=== PATIENT | female | born 1960 | race Caucasian/White ===

== ENCOUNTER → 2017-05-08 | Outpatient (CLI) | payer OTHER ==
[~2017-05-08] MED LIST: CRAN200C2 PO; FLUO20CA16 PO; HYDR-2766 PO; HYDR1TAB12 PO; IBUP1TAB84 PO; METH-38 PO; MULT1TAB52 PO; OMEP40CA5 PO; SIMV40TA3 PO; TRAZ50TA15 PO
[2017-05-08 15:57] LABS: BASO # 0.1 x10^3/uL (0.0-0.2); BASO % 1 % (0-3); EOS % 0 % (0-3); HEMATOCRIT 43.4 % (36.0-47.0); HEMOGLOBIN 14.5 g/dL (12.0-15.5); LYMPH # 2.5 x10^3/uL (1.0-4.8); LYMPH % 45 % (24-48); MEAN CORPUSCULAR HEMOGLOBIN 34 pg (25-35); MEAN CORPUSCULAR HGB CONC 33 g/dL (31-37); MEAN CORPUSCULAR VOLUME 101 fL (79-100); MONO % 9 % (0-9); NEUT % 44 % (31-73); PLATELET COUNT 218 x10^3/uL (140-400); RED BLOOD COUNT 4.31 x10^6/uL (3.50-5.40); RED CELL DISTRIBUTION WIDTH 13.4 % (11.5-14.5); WHITE BLOOD COUNT 5.4 x10^3/uL (4.0-11.0)
[2017-05-08 16:15] LABS: ALBUMIN 4.1 g/dL (3.4-5.0); ALBUMIN/GLOBULIN RATIO 1.1 (1.0-1.7); CALCIUM 8.9 mg/dL (8.5-10.1); CREATININE 0.8 mg/dL (0.6-1.0); GFR 73.9; POTASSIUM 4.3 mmol/L (3.5-5.1); TOTAL BILIRUBIN 0.6 mg/dL (0.2-1.0); TOTAL PROTEIN 7.8 g/dL (6.4-8.2)
== END | disposition home or self-care (01) ==
LOC: SURGPAT 13:25
PROVIDERS: ATTEND Neurological Surgery
DX: M48.06 Spinal stenosis, lumbar region (principal)
CPT/HCPCS: 36415; 80053; 85027; 87641

== ENCOUNTER 2017-05-15 06:59 | Observation (INO) | payer OTHER ==
[2017-05-15] VITALS (10 sets, daily range): BP systolic 98–110; BP diastolic 57–68
[~2017-05-15] VITALS: Ht 165.1 cm; Wt 86.2 kg
[~2017-05-15 06:59] MED LIST changes: +BACITRACIN 50,000 UNIT in IV NORMAL SALINE 1000ML BAG 1,000 ML IRR ONE; -HYDR-2766 PO; -METH-38 PO
[2017-05-15] MEDS ORDERED: MORPHINE SULFATE 2 MG/ML DISP.SYRIN. IV PRN (07:00)
[2017-05-15] MEDS ORDERED: PROCHLORPERAZINE 10 MG/2 ML VIAL. IV PRN (07:00)
[2017-05-15] MEDS ORDERED: IV RINGERS,LACTATED 1000ML 1,000 ML IV SCH (07:00)
[2017-05-15] MEDS ORDERED: ONDANSETRON PF 4 MG/2 ML VIAL. IV PRN (07:00)
[2017-05-15] MEDS ORDERED: fentaNYL PF VIAL 100 MCG/2 ML VIAL IV PRN (07:00)
[2017-05-15] MEDS ORDERED: LIDOCAINE 1% 1 ML SYRINGE. ID PRN (07:00)
[2017-05-15] MEDS ORDERED: KETOROLAC 60 MG/2 ML INJ FOR OR. ONE (07:46)
[2017-05-15] MEDS ORDERED: GELATIN SPONGE SIZE 100. ONE (07:46)
[2017-05-15] MEDS ORDERED: THROMBIN TOPICAL 20,000 UNIT SPRAY.SYRN KIT TP ONE (07:46)
[2017-05-15] MEDS ORDERED: BUPIVACAINE-EPI 0.25%-1:200000 MPF 30 ML VIAL. ONE (07:46)
[2017-05-15] MEDS ORDERED: DESFLURANE > 120 MINUTES IH ONE (07:58)
[2017-05-15] MEDS ORDERED: GLYCOPYRROLATE 1 MG/5 ML VIAL. ONE (07:58)
[2017-05-15] MEDS ORDERED: fentaNYL PF VIAL 100 MCG/2 ML VIAL ONE (07:58)
[2017-05-15] MEDS ORDERED: REMIFENTANIL 2 MG VIAL. IV ONE (07:58)
[2017-05-15] MEDS ORDERED: MIDAZOLAM HCL/PF 2 MG/2 ML VIAL. ONE (07:58)
[2017-05-15] MEDS ORDERED: MINERAL OIL/PETROLATUM,WHITE OPHTH OINT 3.5GM TUBE. ONE (07:59)
[2017-05-15] MEDS ORDERED: ROCURONIUM 50 MG/5 ML VIAL. ONE (07:59)
[2017-05-15] MEDS ORDERED: ONDANSETRON PF 4 MG/2 ML VIAL. ONE (07:59)
[2017-05-15] MEDS ORDERED: PROPOFOL 20 ML IV ONE (07:59)
[2017-05-15] MEDS ORDERED: PROPOFOL 50 ML IV ONE ×2 (07:59)
[2017-05-15] MEDS ORDERED: 0.9 % SODIUM CHLORIDE 50 ML VIAL. IJ ONE (07:59)
[2017-05-15] MEDS ORDERED: DEXAMETHASONE SOD PHOS 20 MG/5 ML VIAL. ONE (07:59)
[2017-05-15] MEDS ORDERED: NEOSTIGMINE METHYLSULFATE 5 MG/5 ML SYRINGE. ONE (07:59)
[2017-05-15] MEDS ORDERED: LIDOCAINE 2% PF Vial for OR 5 ML VIAL. ONE (07:59)
[2017-05-15] MEDS ORDERED: PHENYLEPHRINE 10 MG/ML VIAL. ONE (08:02)
[2017-05-15] MEDS: fentaNYL PF VIAL 100 MCG/2 ML VIAL IV PRN ×8 (10:39→23:37)
[2017-05-15] MEDS ORDERED: PROMETHAZINE 12.5 MG in IV NORMAL SALINE 50ML 50 ML IV PRN (11:00)
[2017-05-15] MEDS ORDERED: MEPERIDINE PF 25 MG/ML VIAL. ONE (11:05)
[2017-05-15] MEDS ORDERED: MEPERIDINE PF 25 MG/ML VIAL. IV PRN (11:15)
[2017-05-15] MEDS ORDERED: MIDAZOLAM HCL/PF 2 MG/2 ML VIAL. IV ONE (11:15)
[2017-05-15] MEDS: HYDROmorphone 2 MG/ML VIAL IV PRN ×4 (11:37→12:31)
[2017-05-15] MEDS ORDERED: MAG HYDROX/ALUMINUM HYD/SIMETH 30 ML ORAL.SUSP PO PRN (11:45)
[2017-05-15] MEDS ORDERED: diphenhydrAMINE HCL 25 MG CAPSULE PO PRN (11:45)
[2017-05-15] MEDS ORDERED: diphenhydrAMINE 50 MG/ML VIAL IV PRN (11:45)
[2017-05-15] MEDS ORDERED: ACETAMINOPHEN 325 MG TABLET. PO PRN (11:45)
[2017-05-15] MEDS ORDERED: CALCIUM CARBONATE 500 MG TAB.CHEW PO PRN (11:45)
[2017-05-15] MEDS ORDERED: MAGNESIUM HYDROXIDE 2,400 MG/30 ML ORAL.SUSP. PO PRN (11:45)
[2017-05-15] MEDS ORDERED: 0.9 % SODIUM CHLORIDE 10 ML DISP.SYRIN. IV PRN (11:45)
[2017-05-15] MEDS ORDERED: HYDROcodone/APAP 7.5/325MG 1 TAB TABLET PO PRN ×2 (11:45)
[2017-05-15] MEDS: FLUoxetine HCL 20 MG CAPSULE PO SCH (14:38)
[2017-05-15] MEDS: MULTIVITAMIN with MINERAL TABLET. PO SCH (14:38)
[2017-05-15] MEDS: PANTOPRAZOLE 40 MG TABLET.DR. PO SCH (14:39)
[2017-05-15] MEDS: METHOCARBAMOL 750 MG TABLET PO PRN ×2 (14:39→23:37)
[2017-05-15] MEDS ORDERED: POTASSIUM CL 20MEQ D5-0.45NACL 1,000 ML IV SCH (15:00)
[2017-05-15] MEDS ORDERED: HYDROcodone/APAP 10/325 1 TAB TABLET PO PRN (18:30)
[2017-05-15] MEDS: DOCUSATE SODIUM 100 MG CAPSULE. PO SCH (20:49)
[2017-05-15] MEDS: HYDROcodone/APAP 10/325 1 TAB TABLET PO PRN (20:49)
[2017-05-15] MEDS ORDERED: SIMVASTATIN 40 MG TABLET. PO SCH (21:00)
[2017-05-15] MEDS ORDERED: traZODone 50 MG TABLET. PO SCH (21:00)
[2017-05-16 02:45] VITALS: BP 112/70
[2017-05-16] MEDS: HYDROcodone/APAP 10/325 1 TAB TABLET PO PRN ×2 (03:21→10:11)
[2017-05-16] MEDS: fentaNYL PF VIAL 100 MCG/2 ML VIAL IV PRN ×3 (04:40→09:32)
[2017-05-16 06:30] VITALS: BP 97/66
[2017-05-16] MEDS: PANTOPRAZOLE 40 MG TABLET.DR. PO SCH (07:10)
[2017-05-16] MEDS ORDERED: NON FORMULARY ITEM (Cranberry Extract (Cranberry) 200 MG) PO SCH (09:00)
[2017-05-16] MEDS: DOCUSATE SODIUM 100 MG CAPSULE. PO SCH (09:33)
[2017-05-16] MEDS: MULTIVITAMIN with MINERAL TABLET. PO SCH (09:33)
[2017-05-16] MEDS: FLUoxetine HCL 20 MG CAPSULE PO SCH (09:33)
--- NOTE | 2017-05-16 09:53 | DISCH ---
DISCHARGE INSTRUCTIONS Condition on Discharge Condition on Discharge: Stable Activity After Discharge Activity Instructions for Disc: Activity as tolerated, Avoid exertion Other activity instructions: no driving for a week Bathing Instructions: Shower-keep dressing dry Lifting Instructions after Dis: No heavy lifting, No pulling or pushing, Do not lift >10 pounds Diet after Discharge Additional Diet Restrictions: resume home diet Wound Incision Care Wound/Incision Care: Ice to area for comfort Other wound/incision instructi: may remove dressing in 48 hrs if dry then may shower- no soaking Contacting the after DC Call your doctor for: Concerns you may have Follow-Up Follow up with: Dr. Michelle's nurse in 2 weeks -[phone] SHONNA MICHELLE MD May 16, 2017 09:53
[2017-05-16] MEDS ORDERED: HYDR-2766 PO (09:58)
[2017-05-16] MEDS ORDERED: METH-38 PO (09:59)
[2017-05-16 10:01] VITALS: BP 141/79
[2017-05-16] MEDS: METHOCARBAMOL 750 MG TABLET PO PRN (10:10)
--- NOTE | 2017-05-17 12:38 | PATHOLOGY ---
PATHOLOGY REPORT * * * * * * * * FINAL DIAGNOSIS: Fibroadipose muscular soft tissue bone and cartilage, "lumbar decompression": - Fragments of fibromuscular adipose tissue with bone and cartilage with focal fibrosis consistent with lumbar stenosis. (SHA:quirino; 05/17/2017) REPORT ELECTRONICALLY SIGNED BY: Oli Zaidi M.D. DATE/TIME: 05/17/2017 12:38 * * * * * * * * GROSS PATHOLOGY: Received in formalin labeled "Francia Barbosa, lumbar decompression" are multiple segments of kelly, rubbery, and gritty tissue admixed with bone. The specimen measures 3.8 x 3.7 x 1.1 cm in aggregate dimensions. The tissue is submitted representatively in cassette A1, following decalcification. (CAA; 05/16/2017) INITIAL CPT CODE(S): A; 80884, 95067 Professional services [place] [address] Technical services performed by [facility] at [address] [place] [address], [facility] [address] [address]. SPECIMEN(S) RECEIVED: A.Lumbar decompression CLINICAL HISTORY: Lumbar stenosis, radiculopathy PATIENT: FRANCIA BARBOSA /AGE: 212/24/1960 (Age: 56) PATIENT #: [id number] ALT CASE #: SPECIMEN COLLECTION DATE: 05/15/2017 SPECIMEN RECEIVED DATE: 05/15/2017 [facility] - [address] [place] [address] - PHONE: [phone] * * * END OF REPORT * * *
--- NOTE | 2017-06-01 03:52 | OP ---
DATE OF SURGERY: 05/15/2017 PREOPERATIVE DIAGNOSES: Lateral recess stenosis L4-L5 left with severe lumbar radiculopathy. POSTOPERATIVE DIAGNOSIS: Lateral recess stenosis L4-L5 left with severe lumbar radiculopathy. OPERATION PERFORMED: Hemilaminotomy with removal of thickened ligamentum flavum and performance of a partial foraminotomy to decompress the left L5 root. The operation was done with EMG monitoring, fluoroscopy, and microscopic dissection. ROLL GRINDER: Nikita Bernabe MD, assisted with the surgery, assisted with the decompression and closure. OPERATIVE INDICATIONS: The patient is a very pleasant 56-year-old who developed intractable back and left leg pain which was extremely severe. On imaging studies, she had lateral recess stenosis at L4-L5. I recommended micro-decompressive surgery to decompress this region and see if this would help her with her severe pain. She understood the surgery and the risks, she understood the technique of the operation and she wished to go ahead. DESCRIPTION OF PROCEDURE: Following endotracheal anesthesia, the patient was positioned prone on the Jarod table. Her lumbar region was prepped and draped in standard fashion. TIARA hose and AV impulse boots were applied for DVT prophylaxis. A microscope was draped. Fluoroscopy was draped and brought into the field. Ancef 2 grams given less than one hour prior to initiation of surgery and fluoroscopic guidance, a midline posterior incision was made over the L4-L5 interspace. I dissected down through the skin and subcutaneous tissue and reflected the paraspinal muscles and placed a Alvin micro disk retractor. I brought in the microscope and using the high speed air drill, I burred down a very generous hemilaminotomy using microscopic technique. Ligamentum flavum was grasped, freed up from above and peeled inferiorly and then from medial to lateral and then I trimmed this away laterally exposing the lateral edge of the dura and I worked inferiorly and thinned the bone over the neural foramen and then trimmed this with the 2.5 mm feeling Kerrison. At this point, I had an excellent decompression of the dura and the exiting root which is not well decompressed especially after the calcified ligamentum flavum and peeled back and removed. I gently retracted the dura and nerve root medially. There were few epidural veins, which I coagulated and then following this, I explored carefully, the disk was firm, no diskectomy was warranted. I had an excellent decompression and I irrigated. I did use small amounts of bone wax and then removed the retractor, obtained hemostasis in the muscle and closed the wound in layers with absorbable sutures, the skin was closed with 4-0 subcuticular stitch. Operation went very well and the patient was taken to recovery room in excellent condition. SHONNA MICHELLE MD DR: MATTHIEU/espinoza JOB#: [id number] / [id number]
== END 2017-05-16 10:25 | disposition home or self-care (01) ==
LOC: SURG 06:59 → EDUNIT# 08:30 → 4 SOUTHEST 11:32 → UNDOADMOB 12:42 → 4 SOUTHEST 13:10
PROVIDERS: ADMIT Neurological Surgery; ATTEND Neurological Surgery
DX: M48.06 Spinal stenosis, lumbar region (principal); M54.16 Radiculopathy, lumbar region
CPT/HCPCS: 63030; 76000; 88304; 88311; 96374; 96376; 97161; A6539; G0378; G0379; G8978; G8979; G8980; J0690; J1100; J1170; J1885; J2001; J2175; J2250; J2405; J2704; J2710; J3010; J3490; J7030; J7120

== ENCOUNTER → 2017-08-14 | Outpatient (CLI) | payer OTHER ==
[~2017-08-14] MED LIST changes: -BACITRACIN 50,000 UNIT in IV NORMAL SALINE 1000ML BAG 1,000 ML IRR ONE; +CALC500T30 PO; +HYDR-2762 PO; +HYDR-2766 PO; +METH-38 PO
--- NOTE | 2017-08-14 12:09 | PAIN ---
DATE OF SERVICE: 08/14/2017 PAIN CLINIC INITIAL CONSULTATION DATE OF SERVICE: 08/14/2017 CHIEF COMPLAINT: Low back and right hip pain. HISTORY OF PRESENT ILLNESS: This is a 56-year-old female who presents with history of pain, low back, right gluteus with recent surgery in May of this year with laminectomy which cured the left-sided pain, but the right-sided pain is now different staying mostly only in her back, which was unlike that prior to surgery. The patient reports it has been this way about 6 months as a constant, sharp, stabbing pain. It is aching, dull, cramping, can be more of a tingling sensation in the back itself, but unlike the presurgical pain which was radiating to her legs. This is staying in her right low back. The patient reports it is worse with standing, walking, changing positions, better with leaning forward, worse with extension of the spine, worse with rotation, especially to the right side, it is much more exacerbated. The patient reports it wakes her up from sleep at night at least twice a night, does not affect her bowel or bladder control, but does affect her ability to walk. She is favoring her right side of her low back. The patient reports she has had physical therapy, which was not helpful. This was in April of this year, which has not decreased the pain. The patient has been taking Robaxin muscle relaxer as well as Medina, which does decrease the pain, but only for about 3-4 hours at a time. The patient reports disability rate from 0-10, 10 being the worst, as an 8 with family and home responsibilities, recreation, social activity, occupation, sexual behavior, 7 with self care and driving, and 2 with life support activities, again worse with walking, standing, changing positions. Sitting decreases the pain, driving increases the pain; however, with using her right foot and leg, any lifting, bending or stooping increases the pain. The patient did have an MRI scan dated 07/28/2017 showing previous surgical changes at L4-L5 with minimal diffuse disk bulge noted. Degenerative changes in the facets at L4-L5 with lateral recesses partially effaced, and L5-S1 showing normal disk and facet at that level. The patient reports no loss of motor function, but her right back seems to fatigue much more easily when walking compared to the left side. PAST MEDICAL HISTORY: Significant for cigarette smoking, arthritis, glaucoma, cataracts. PREVIOUS SURGERY: Include a cataract extraction, retinal surgery on the right, tube shunt in the left eye, previous total right hip replacement in 2010 and laminectomy on 05/15/2017. CURRENT MEDICATIONS: Include Robaxin, cranberry, trazodone, Prozac, simvastatin, hydrocodone, and calcium. ALLERGIES: The patient has no known drug allergies. FAMILY HISTORY: Significant for no major medical problems or conditions that she is aware of. SOCIAL HISTORY: The patient smokes about 1 pack a day, has for 40 years, of cigarettes. Drinks 1-2 drinks once or twice a month, alcoholic drinks. She is , lives with her spouse and has grandchildren that she takes care of. The patient lives locally in [place], [place], reports she is currently retired. REVIEW OF SYSTEMS: The patient's review of systems is positive for those items mentioned in history of present illness. All systems reviewed and otherwise negative. It is complete, full and well documented on the patient's chart. PHYSICAL EXAMINATION: Today: VITAL SIGNS: The patient's blood pressure 158/95, pulse 80, respirations 18, temperature 98.1 degrees Fahrenheit. Height is 5 feet 5 inches, weight is 171 pounds. GENERAL: The patient is awake, alert, oriented, appropriate, very pleasant demeanor. HEENT: Head shows normocephalic and atraumatic. Extraocular movements are intact, symmetrical. Oral cavity, mucous membranes are moist and pink. Dentition is intact. NECK: Shows anterior throat supple without palpable lymphadenopathy noted. Swallow reflex is symmetrical. CHEST: Shows normal on inspection. Breath sounds clear to auscultation bilaterally. HEART: Shows S1 and S2 clear. ABDOMEN: Soft, nontender, nondistended. No palpable organomegaly, no rebound or guarding demonstrated. BACK: The patient's back shows spine grossly midline. Normal appearing thoracic kyphosis and mild flattening of lumbar lordotic curvature with well-healed surgical scar noted in the lumbar distribution. Lumbar paraspinous muscles are diffusely tender, but firm and equal and symmetrical bilaterally without radiation of pain, no tenderness over the spinous processes, sacrum or sacroiliac regions. The patient shows some significant tenderness in the low lumbar distribution just lateral to the spinous processes in the low paraspinal distribution, very, very tender on the right, but nontender on the left, without radiation. The patient has good rotation of the lumbar spine, both laterally greater than 10 degrees right and left with significant pain reported with right lateral rotation. Decreased pain with forward flexion and increased pain with extension, especially on the right side, but again without radiation to the lower extremities. EXTREMITIES: Lower extremities show deep tendon reflexes at 1+ in the patellar and tendo calcaneus tendons are equal. Motor exam is strong with 5/5 dorsiflexion, extension, quadriceps and hamstring flexion are symmetrical. Peripheral pulses are 1+ posterior tibial and dorsalis pedis pulses. No peripheral edema is noted. No clubbing, no cyanosis. Lower extremities are warm and dry to touch, equal in color and appearance. Straight leg raising has been negative for reproduction of radicular pain bilaterally. Gaenslen's and Floyd's maneuvers are negative bilaterally as well. The patient is able to stand, stand on her toes without difficulty or loss of balance, walking with a significant favoring gait. The patient had a significant limp favoring the right side when she ambulates, not using any assistive devices such as canes or walkers to ambulate, however. IMPRESSION: This is a 56-year-old female who presents with: 1. Right-sided low back pain status post laminectomy on 05/15/2017 with good resolution of left-sided symptoms, but right-sided symptoms significantly increased without radicular pain in the extremity. 2. MRI scan of lumbar spine as noted. 3. History of arthritis. 4. Cigarette smoking. PLAN: Options were discussed with the patient including conservative medical management, physical therapy and interventional techniques and she elected to proceed with interventional techniques since she has already done physical therapy as well as is still doing exercises and strengthening and stretching exercises on her own. We discussed a right-sided facet joint injection at L4-L5 and L5-S1 levels using description as well as anatomical models to describe the procedure. The patient will wait for preauthorization from her insurance provider and will have her return for a right-sided L4-L5 and L5-S1 facet joint injections. The patient will try Medrol Dosepak in the meantime, was given prescription with instructions, side effects to be aware of. Also, given refill of hydrocodone 7.5 mg for a limited supply of 50 tablets with instructions, side effects to be aware of discussed as well. Also discussed the patient's blood pressure is somewhat elevated today. She reports this has not been a problem that she is aware of. We will have her follow up with her primary care physician regarding this if this continues to be high. PABLO TABARES MD DR: DALJIT/espinoza JOB#: [id number] / [id number]
== END | disposition home or self-care (01) ==
LOC: PNCL 09:00
PROVIDERS: ATTEND Anesthesiology
DX: M25.551 Pain in right hip (principal); H40.9 Unspecified glaucoma; M79.671 Pain in right foot; Z96.641 Presence of right artificial hip joint; F17.210 Nicotine dependence, cigarettes, uncomplicated
CPT/HCPCS: 99214

== ENCOUNTER → 2017-08-17 | Outpatient (CLI) | payer OTHER ==
[~2017-08-17] MED LIST changes: +BUPIVACAINE MPF 0.25% 10 ML VIAL. ONE; +IOHEXOL 180 MG/ML 10 ML VIAL. ONE; +methylPREDNISolone ACETATE 40 MG/ML VIAL. ONE; +methylPREDNISolone ACETATE 80 MG/ML VIAL. ONE
--- NOTE | 2017-08-17 11:10 | PAIN ---
DATE OF SERVICE: 08/17/2017 DIAGNOSES: 1. Lumbar spondylosis, both lumbar and lumbosacral. 2. Post-lumbar laminectomy syndrome. HISTORY OF PRESENT ILLNESS: The patient is a 56-year-old female who returns for followup status post initial evaluation and preauthorization for right-sided facet joint injections. The patient returns with the authorization now, reporting still significant pain in the low back, right hip and leg. Rates a 8 on a scale of 10 at its worst, a 7 on average and a 7 at its least. She reports it is stabbing, aching, sharp, shooting and constant, especially worse with lifting anything or bending and stooping, changing positions, standing or even sitting for prolonged periods. The patient reports it is better when she sits for a short period or lying down. It does awaken her from sleep occasionally but she sleeps about 6 hours at a time, has to reposition and she is able to get back to sleep. Patient reports no new motor or sensory deficits, no new bowel or bladder incontinence or other complaints. PHYSICAL EXAMINATION: VITAL SIGNS: The patient's blood pressure is 130/82, pulse 78, respirations 18, temperature 98.2 degrees Fahrenheit. Height is 5 feet 5 inches, weighs 163 pounds. GENERAL: The patient is awake, alert, oriented, appropriate, very pleasant demeanor. HEENT: Head shows normocephalic, atraumatic. Extraocular movements are intact and symmetrical. Oral cavity, mucous membranes moist and pink. Dentition is intact. NECK: Shows anterior throat supple without palpable lymphadenopathy noted. Swallow reflex is symmetrical. CHEST: Shows normal on inspection. Breath sounds clear to auscultation bilaterally. HEART: Shows S1 and S2 clear. ABDOMEN: Soft, nontender, nondistended. No palpable organomegaly. There is no rebound or guarding demonstrated. BACK: Shows spine grossly midline. Well healed surgical scars noted in the lumbar distribution in the low lumbar region. The patient's lumbar paraspinous muscle shows some nyhd-vi-[id number] tenderness with palpation, but only diffusely so. Lower extremities show deep tendon reflexes at 1+ in the patellar and tendo calcaneus tendons. Motor exam is strong with 5/5 dorsiflexion, extension, quadriceps and hamstring flexion. Peripheral pulses are 1+ posterior tibial bilaterally. No peripheral edema is noted. Options were discussed with the patient. The patient's old chart was reviewed as her current medication regimen updated. Current review of systems updated today as well. We will proceed with right-sided L4-L5 and L5-S1 facet joint injections with fluoroscopic guidance. Risks were again discussed including, but not limited to bleeding, infection, possibility of epidural hematoma, subsequent neurologic compromise, dural punctures, headaches, spinal cord and/or nerve damage, side effects of steroid medication and poor results regarding pain control. The patient understands and wishes to proceed. The patient will return to clinic in approximately 2 weeks for followup. She was counseled to return appointment, activity level and side effects to be aware of. DIAGNOSIS: Lumbar and lumbosacral spondylosis. PROCEDURE: Lumbar L4-L5 and L5-S1 facet joint injections using C-arm fluoroscopic guidance under sterile prep and drape using local anesthetic. MEDICATION INJECTED: A total of 120 mg Depo-Medrol plus total of 2 mL of 0.25% bupivacaine after negative aspiration at each level and 1 mL of Isovue for contrast. CONDITION AT DISCHARGE: Stable. The patient tolerated procedure well, had no complications. PABLO TABARES MD DR: DALJIT/espinoza JOB#: [id number] / [id number]
== END | disposition home or self-care (01) ==
LOC: PNCL 09:56
PROVIDERS: ATTEND Anesthesiology
DX: M47.816 Spondylosis without myelopathy or radiculopathy, lumbar region (principal); M96.1 Postlaminectomy syndrome, not elsewhere classified; E78.00 Pure hypercholesterolemia, unspecified; K21.9 Gastro-esophageal reflux disease without esophagitis; F41.9 Anxiety disorder, unspecified; F32.9 Major depressive disorder, single episode, unspecified; F17.200 Nicotine dependence, unspecified, uncomplicated; Z72.0 Tobacco use; Z98.41 Cataract extraction status, right eye; Z98.42 Cataract extraction status, left eye; Z98.890 Other specified postprocedural states; Z86.39 Personal history of other endocrine, nutritional and metabolic disease; Z90.710 Acquired absence of both cervix and uterus; Z87.39 Personal history of other diseases of the musculoskeletal system and connective tissue; Z96.641 Presence of right artificial hip joint
CPT/HCPCS: 64493; 64494; J1030; J1040; J3490

== ENCOUNTER → 2017-08-22 | Outpatient (CLI) | payer OTHER ==
[~2017-08-22] MED LIST changes: -BUPIVACAINE MPF 0.25% 10 ML VIAL. ONE
--- NOTE | 2017-08-22 11:53 | PAIN ---
DATE OF SERVICE: 08/22/2017 DIAGNOSES: 1. Lumbar radiculopathy with post-lumbar laminectomy syndrome. 2. Lumbar spondylosis, both lumbar and lumbosacral. HISTORY OF PRESENT ILLNESS: The patient is a 56-year-old female who returns for followup status post initial evaluation and right-sided lumbar facet joint injections. The patient reports no improvement at all even for the first day or so and the right back pain. Pain is now radiating into the posterior gluteus and thigh as well as a little in the right lateral thigh with standing and walking. The patient had called yesterday and discussed that she needed more pain medication as she had taken the 50 tablets I gave her 8 days ago. The patient reports that she was taking them 2 at a time up to 3 times a day on Sundays. The patient reports the pain has been that severe in the right side low back now is stabbing, sharp, shooting, radiating, constant, severe and unbearable; rates a 10 on a scale of 10 at its worst, 9 on average and an 8 at its least and rates it as an 8 today. The patient reports no new motor or sensory deficits, no new bowel or bladder incontinence or other complaints; however, she has been having difficulty sleeping with the pain. She is having to get out of bed, apply heat or cold, or take pain medicine at night to get through the night as well. The patient reports no loss of motor function; however, no new bowel or bladder incontinence. PHYSICAL EXAMINATION: VITAL SIGNS: The patient's blood pressure 152/75, pulse 94, respirations 18, temperature is 98.2 degrees Fahrenheit, height is 5 feet 5 inches, weight is 162 pounds. GENERAL: The patient is awake, alert, oriented, appropriate, very pleasant demeanor. HEENT: Shows normocephalic, atraumatic. Extraocular movements are intact, symmetrical. Oral cavity shows mucous membranes are moist and pink. Dentition is intact. NECK: Shows anterior throat supple without palpable lymphadenopathy noted. Swallow reflex is symmetrical. CHEST: Normal on inspection. Breath sounds are clear to auscultation bilaterally. HEART: Shows S1 and S2 clear. ABDOMEN: Soft, nontender, nondistended. BACK: Shows spine grossly midline. Well-healed surgical scar is noted in the lumbar distribution. Lumbar paraspinous musculature is symmetrical with palpation shows some mild tenderness but only very mildly so in the middle and lower lumbar distribution without significant radiation, without trigger points. No tenderness over the sacrum or sacroiliac regions. EXTREMITIES: Lower extremities showed deep tendon reflexes at 1+/4 in the patellar and tendo calcaneus tendons. Motor exam is strong with dorsiflexion and extension rated at 5/5 and equal bilaterally. Options were discussed with the patient and the patient's old chart was reviewed as her current medication regimen updated. Current review of systems is updated today as well and we will proceed with a Lumbar epidural steroid injection translaminar approach today. Risks were discussed including but not limited to bleeding, infection, possibility of epidural hematoma, subsequent neurologic compromise, dural puncture, headaches, spinal cord and/or nerve damage, side effects of steroid medication and poor results regarding pain control. The patient understands and wishes to proceed. The patient will return to clinic in approximately 2 weeks for followup, was counseled on return appointment, activity level and side effects to be aware of. DIAGNOSIS: Lumbar radiculopathy with lumbar post-laminectomy syndrome. PROCEDURE: Lumbar epidural steroid injection in translaminar approach at L5-S1 level using C-arm fluoroscopic guidance under sterile prep and drape using local anesthetic. MEDICATIONS INJECTED: A total of 120 mg Depo-Medrol plus 10 mL preservative-free normal saline and 2 mL of Isovue for contrast. CONDITION AT DISCHARGE: Stable. The patient tolerated the procedure well, had no complications. PABLO TABARES MD DR: DALJIT/espinoza JOB#: [id number] / [id number]
== END | disposition home or self-care (01) ==
LOC: PNCL 08:47
PROVIDERS: ATTEND Anesthesiology
DX: M54.16 Radiculopathy, lumbar region (principal); M96.1 Postlaminectomy syndrome, not elsewhere classified; M47.26 Other spondylosis with radiculopathy, lumbar region; E78.00 Pure hypercholesterolemia, unspecified; K21.9 Gastro-esophageal reflux disease without esophagitis; M16.11 Unilateral primary osteoarthritis, right hip; F41.9 Anxiety disorder, unspecified; F32.9 Major depressive disorder, single episode, unspecified; F17.200 Nicotine dependence, unspecified, uncomplicated; Z72.0 Tobacco use; Z98.41 Cataract extraction status, right eye; Z98.42 Cataract extraction status, left eye; Z86.69 Personal history of other diseases of the nervous system and sense organs; Z90.710 Acquired absence of both cervix and uterus; Z87.39 Personal history of other diseases of the musculoskeletal system and connective tissue; Z96.641 Presence of right artificial hip joint
CPT/HCPCS: 62323; J1030; J1040

== ENCOUNTER → 2017-09-05 | Outpatient (CLI) | payer OTHER ==
--- NOTE | 2017-09-05 10:21 | PAIN ---
DATE OF SERVICE: 09/05/2017 DATE OF SERVICE: 09/05/2017 DIAGNOSES: Lumbar radiculopathy with post-lumbar laminectomy syndrome. HISTORY OF PRESENT ILLNESS: The patient is a 56-year-old female who returns for followup status post lumbar epidural steroid injection x 1 on 08/22/2017. The patient reports that she did very well with about 75% improvement after the injections, still improved with some pain returning in the low back and right leg, but only to a mild extent. The patient reports feeling much better. She is sleeping better at night, increasing her activity with greater ease and comfort, walking, standing, changing positions. The patient reports her pain is aching and sometimes sharp in the low back and right hip, posterior gluteus, posterior thigh, but only intermittent at this time, is on and off. The patient reports her pain is a 6 on a scale of 10 at its worst, is a 6 on average and is a 3 today, which is at its least. The patient reports no new motor or sensory deficits, no new bowel or bladder incontinence and is very pleased with her progress thus far. PHYSICAL EXAMINATION: VITAL SIGNS: The patient's blood pressure 128/87, pulse 77, respirations 18, temperature 98.5 degrees Fahrenheit. Height is 5 feet 5 inches, weight 162 pounds. GENERAL: The patient is awake, alert, oriented, appropriate, very pleasant demeanor. HEENT: Shows normocephalic, atraumatic. Extraocular movements are intact and symmetrical. Oral cavity shows mucous membranes are moist and pink. Dentition is intact. NECK: Shows anterior throat supple without palpable lymphadenopathy noted. Swallow reflex is symmetrical. CHEST: Shows normal on inspection. Breath sounds are clear to auscultation bilaterally. HEART: Shows S1 and S2 clear. ABDOMEN: Soft, nontender, nondistended. No palpable organomegaly. No rebound or guarding demonstrated. BACK: Shows spine grossly in midline. Lumbar paraspinous muscle shows some symmetry with inspection. On palpation shows some moderate tenderness bilaterally, but only diffusely without significant radiation. The patient shows good rotation and motion both laterally as well as extension and flexion of lumbar spine without pain reported. LOWER EXTREMITIES: Showed deep tendon reflexes at 1+ in the patellar and tendo calcaneus tendons are equal. Motor exam is strong with 5/5 dorsiflexion, extension, quadriceps and hamstring flexion. Peripheral pulses are 2+. PLAN: Options were discussed with the patient and the patient's old chart was reviewed as her current medication regimen updated. Current review of systems updated today as well. We will proceed with a second lumbar epidural steroid injection today with fluoroscopic guidance. Risks were again discussed including, but not limited to bleeding, infection, possibility of epidural hematoma, subsequent neurologic compromise, dural puncture, headaches, spinal cord and/or nerve damage, side effects of steroid medication and poor results regarding pain control. The patient understands and wishes to proceed. The patient will return to clinic in approximately 2 weeks for followup. She was counseled on return appointment, activity levels and side effects to be aware of. DIAGNOSIS: Lumbar radiculopathy with post-lumbar laminectomy syndrome. PROCEDURE: Lumbar epidural steroid injection in translaminar approach at L5-S1 level using C-arm fluoroscopic guidance under sterile prep and drape using local anesthetic. MEDICATION INJECTED: A total of 120 mg Depo-Medrol plus 10 mL preservative-free normal saline and 2 mL Isovue for contrast. CONDITION AT DISCHARGE: Stable. The patient tolerated procedure well, had no complications. PABLO TABARES MD DR: DALJIT/espinoza JOB#: [id number] / [id number]
== END | disposition home or self-care (01) ==
LOC: PNCL 08:26
PROVIDERS: ATTEND Anesthesiology
DX: M54.16 Radiculopathy, lumbar region (principal); M96.1 Postlaminectomy syndrome, not elsewhere classified; F41.9 Anxiety disorder, unspecified; K21.9 Gastro-esophageal reflux disease without esophagitis; E78.00 Pure hypercholesterolemia, unspecified; M16.11 Unilateral primary osteoarthritis, right hip; F17.210 Nicotine dependence, cigarettes, uncomplicated; Z90.710 Acquired absence of both cervix and uterus; Z98.890 Other specified postprocedural states; Z96.641 Presence of right artificial hip joint; F32.9 Major depressive disorder, single episode, unspecified; H40.9 Unspecified glaucoma
CPT/HCPCS: 62323; J1030; J1040

== ENCOUNTER 2017-10-23 08:57 | Outpatient (CLI) | payer OTHER ==
[~2017-10-23 08:57] MED LIST changes: -IOHEXOL 180 MG/ML 10 ML VIAL. ONE; -methylPREDNISolone ACETATE 40 MG/ML VIAL. ONE; -methylPREDNISolone ACETATE 80 MG/ML VIAL. ONE
[2017-10-23] MEDS ORDERED: IOHEXOL 180 MG/ML 10 ML VIAL. EPI ONE (09:45)
[2017-10-23 09:52] LABS: HEMATOCRIT 41.9 % (36.0-47.0); HEMOGLOBIN 13.9 g/dL (12.0-15.5); RED BLOOD COUNT 4.11 x10^6/uL (3.50-5.40); RED CELL DISTRIBUTION WIDTH 12.7 % (11.5-14.5); WHITE BLOOD COUNT 6.5 x10^3/uL (4.0-11.0)
[2017-10-23 10:02] LABS: INR 0.9 (0.8-1.1); PROTHROMBIN TIME PATIENT 11.4 SEC (11.7-14.0)
[2017-10-23 11:00] VITALS: BP 99/62
--- NOTE | 2017-10-23 11:22 | RAD ---
Myelography Indication: Right-sided radiculopathy. Technique: Informed consent was obtained after explaining risks and benefits of the procedure. Entry site was chosen at L2 vertebral body level. The skin was prepped and draped with the usual sterile procedure. 1% lidocaine was utilized for local anesthesia. 22-gauge spinal needle was used under fluoroscopy guidance. The tip of the spinal needle was confirmed within the spinal canal with return of the CSF. 12 mL of Omnipaque 180 was injected. Total 4 time of 1.4 minutes. Multiple supine and upright spot images were taken. Findings: Prompt opacification of the spinal canal was noted. Grade 1 anterolisthesis of L2 over L3, L3 over L4 and L4 over L5 noted on flexion views which corrects on extension views. Impression: Uncomplicated lumbar spine myelography. Multilevel malalignment on flexion views with correction on extension views suggesting ligament laxity. Patient left the fluoroscopy suite for CT scan and stable condition.
--- NOTE | 2017-10-23 11:40 | RAD ---
Indication: Back pain Technique: CT of the lumbar spine with intrathecal contrast with multi planar reformats. Comparison: MRI from 07/28/2017. Findings: There are 5 lumbar vertebral bodies. Lumbar spine is in normal anatomic alignment. No compression deformities. No significant intervertebral disc space narrowing. No lytic or blastic lesions. The conus ends at the level of T12-L1 disc level. The conus medullaris nerve roots are normal in appearance. Left L4 laminectomy changes. Segmental analysis: T12-L1: No disc bulge or herniation. No facet arthropathy. No spinal canal stenosis or neural foramina narrowing. L1-L2: No disc bulge or herniation. Mild bilateral facet arthropathy. No neural foramina narrowing or spinal canal stenosis. L2-L3: No significant disc bulge or herniation. Moderate bilateral facet arthropathy. No significant neural foramina narrowing or spinal canal stenosis. L3-L4: Mild circumferential disc bulge flattening the anterior thecal sac. Moderate bilateral facet arthropathy. Mild spinal canal narrowing measuring 8.3 mm in AP dimension. Mild bilateral neural foramina narrowing. L4-L5: Mild circumferential disc bulge flattening the anterior thecal sac. Severe right and moderate left facet arthropathy. Moderate right and mild left neural foramina narrowing.Thickening of the bilateral ligamentum flavum noted. There is mild narrowing of the right aspect of the spinal canal measuring 8.4 mm in AP dimension. L5-S1: Moderate bilateral facet arthropathy. No disc bulge or herniation. No neural foramina narrowing. No spinal canal stenosis. Scattered atherosclerotic disease of the abdominal aorta and bilateral iliac arteries. Impression: 1. Left L4 laminectomy changes. 2. L3-L4 and L4-L5 disc disease with facet arthropathy causing mild spinal canal stenosis and neural foraminal narrowing as discussed above. Also see report on MRI lumbar spine from 07/28/2017. PQRS Compliance Statement: One or more of the following individualized dose reduction techniques were utilized for this examination: 1. Automated exposure control 2. Adjustment of the mA and/or kV according to patient size 3. Use of iterative reconstruction technique
[2017-10-23 12:07] VITALS: BP 104/57
== END 2017-10-23 12:09 | disposition home or self-care (01) ==
LOC: RAD 08:57
PROVIDERS: ATTEND Neurological Surgery
DX: M54.16 Radiculopathy, lumbar region (principal); M48.061 Spinal stenosis, lumbar region without neurogenic claudication; I70.0 Atherosclerosis of aorta
CPT/HCPCS: 36415; 72132; 72265; 85027; 85610

== ENCOUNTER → 2017-11-16 | Outpatient (CLI) | payer OTHER ==
[2017-11-16 13:37] LABS: ADD MAN DIFF? NO
[2017-11-16 13:40] LABS: BASO # 0.1 x10^3/uL (0.0-0.2); BASO % 1 % (0-3); EOS % 1 % (0-3); HEMATOCRIT 41.7 % (36.0-47.0); LYMPH # 1.8 x10^3/uL (1.0-4.8); LYMPH % 33 % (24-48); MEAN CORPUSCULAR HEMOGLOBIN 35 pg (25-35); MEAN CORPUSCULAR HGB CONC 34 g/dL (31-37); MEAN CORPUSCULAR VOLUME 104 fL (79-100); MONO # 0.5 x10^3/uL (0.0-1.1); MONO % 9 % (0-9); NEUT # 3.1 x10^3uL (1.8-7.7); NEUT % 57 % (31-73); PLATELET COUNT 209 x10^3/uL (140-400); RED BLOOD COUNT 4.01 x10^6/uL (3.50-5.40); RED CELL DISTRIBUTION WIDTH 13.6 % (11.5-14.5); WHITE BLOOD COUNT 5.4 x10^3/uL (4.0-11.0)
[2017-11-16 13:49] LABS: PARTIAL THROMBOPLASTIN TIME 25 SEC (24-38); PROTHROMBIN TIME PATIENT 12.6 SEC (11.7-14.0)
[2017-11-16 14:05] LABS: ALBUMIN 3.8 g/dL (3.4-5.0); ALBUMIN/GLOBULIN RATIO 1.2 (1.0-1.7); ALK PHOS 86 U/L (46-116); ALT (SGPT) 18 U/L (14-59); ANION GAP 9 (6-14); AST (SGOT) 17 U/L (15-37); BLOOD UREA NITROGEN 3 mg/dL (7-20); BUN/CREATININE RATIO 5 (6-20); CALCIUM 8.9 mg/dL (8.5-10.1); CARBON DIOXIDE 29 mmol/L (21-32); CHLORIDE 104 mmol/L (98-107); CREATININE 0.6 mg/dL (0.6-1.0); GLUCOSE 101 mg/dL (70-99); POTASSIUM 4.5 mmol/L (3.5-5.1); SODIUM 142 mmol/L (136-145); TOTAL BILIRUBIN 0.6 mg/dL (0.2-1.0); TOTAL PROTEIN 6.9 g/dL (6.4-8.2)
[2017-11-16 22:12] LABS: MRSA BY PCR Negative (Negative)
== END | disposition home or self-care (01) ==
LOC: SURGPAT 12:28
DX: Z01.818 Encounter for other preprocedural examination (principal); M48.061 Spinal stenosis, lumbar region without neurogenic claudication; M43.16 Spondylolisthesis, lumbar region; M54.16 Radiculopathy, lumbar region
CPT/HCPCS: 36415; 80053; 85025; 85610; 85730; 87641

== ENCOUNTER 2017-11-20 08:12 | Inpatient (IN) | payer OTHER ==
[~2017-11-20 08:12] MED LIST changes: -CALC500T30 PO; -CRAN200C2 PO; -FLUO20CA16 PO; -HYDR-2762 PO; -HYDR-2766 PO; -HYDR1TAB12 PO; -IBUP1TAB84 PO; +LIDOCAINE 1% PF 2 ML VIAL. ID; -METH-38 PO; +MORPHINE SULFATE 2 MG/ML DISP.SYRIN. IV; -MULT1TAB52 PO; -OMEP40CA5 PO; +ONDANSETRON PF 4 MG/2 ML VIAL. IV; +PROCHLORPERAZINE 10 MG/2 ML VIAL. IV; -SIMV40TA3 PO; -TRAZ50TA15 PO; +fentaNYL PF VIAL 100 MCG/2 ML VIAL IV
[2017-11-20] MEDS ORDERED: ROCURONIUM 50 MG/5 ML VIAL. (08:36)
[2017-11-20] MEDS ORDERED: 0.9 % SODIUM CHLORIDE 50 ML VIAL. IJ (08:36)
[2017-11-20] MEDS ORDERED: fentaNYL PF VIAL 100 MCG/2 ML VIAL ×3 (08:36→16:17)
[2017-11-20] MEDS ORDERED: PROPOFOL 20 ML IV (08:36)
[2017-11-20] MEDS ORDERED: REMIFENTANIL 2 MG VIAL. IV (08:36)
[2017-11-20] MEDS ORDERED: PROPOFOL 50 ML IV ×2 (08:36→12:59)
[2017-11-20] MEDS ORDERED: SUCCINYLCHOLINE 200 MG/10 ML VIAL. (08:36)
[2017-11-20] MEDS: IV RINGERS,LACTATED 1000ML 1,000 ML IV ×2 (08:45→16:56)
[2017-11-20] MEDS ORDERED: ePHEDrine PF IN SALINE 50 MG/5 ML DISP.SYRIN IV (11:50)
[2017-11-20] MEDS ORDERED: DEXAMETHASONE SOD PHOS 20 MG/5 ML VIAL. (12:17)
[2017-11-20] MEDS ORDERED: ONDANSETRON PF 4 MG/2 ML VIAL. (12:17)
[2017-11-20] MEDS ORDERED: DESFLURANE > 120 MINUTES IH (12:17)
[2017-11-20] MEDS: GELATIN SPONGE SIZE 100. (12:20)
[2017-11-20] MEDS: BUPIVAC MPF-EPI 0.75%-1:200000 30 ML VIAL. (12:20)
[2017-11-20] MEDS: BACITRACIN 50,000 UNIT in IV NORMAL SALINE 1000ML BAG 1,000 ML IRR (12:20)
[2017-11-20] MEDS: KETOROLAC 60 MG/2 ML INJ FOR OR. (12:20)
[2017-11-20] MEDS: THROMBIN TOPICAL 20,000 UNIT SPRAY.SYRN KIT TP (12:20)
[2017-11-20] MEDS ORDERED: ACETAMINOPHEN 325 MG TABLET. PO (14:15)
[2017-11-20] MEDS ORDERED: 0.9 % SODIUM CHLORIDE 10 ML DISP.SYRIN. IV (14:15)
[2017-11-20] MEDS ORDERED: diphenhydrAMINE 50 MG/ML VIAL IV (14:15)
[2017-11-20] MEDS ORDERED: MAGNESIUM HYDROXIDE 2,400 MG/30 ML ORAL.SUSP. PO (14:15)
[2017-11-20] MEDS ORDERED: CALCIUM CARBONATE 500 MG TAB.CHEW PO (14:15)
[2017-11-20] MEDS ORDERED: oxyCODONE/APAP 5/325 1 TAB TABLET PO (14:15)
[2017-11-20] MEDS ORDERED: fentaNYL PF VIAL 100 MCG/2 ML VIAL IV (14:15)
[2017-11-20] MEDS ORDERED: ONDANSETRON PF 4 MG/2 ML VIAL. IV (14:15)
[2017-11-20] MEDS ORDERED: MAG HYDROX/ALUMINUM HYD/SIMETH 30 ML ORAL.SUSP PO (14:15)
[2017-11-20] MEDS ORDERED: diphenhydrAMINE HCL 25 MG CAPSULE PO (14:15)
[2017-11-20] MEDS: POTASSIUM CL 20MEQ D5-0.45NACL 1,000 ML IV (15:30)
[2017-11-20] MEDS: fentaNYL PF VIAL 100 MCG/2 ML VIAL IV ×6 (16:03→23:21)
[2017-11-20] MEDS ORDERED: MORPHINE SULFATE 2 MG/ML DISP.SYRIN. ×2 (16:17→16:44)
[2017-11-20] MEDS: MORPHINE SULFATE 2 MG/ML DISP.SYRIN. IV ×3 (16:35→20:38)
[2017-11-20] MEDS ORDERED: HYDROmorphone 2 MG/ML VIAL ×2 (16:45→17:46)
[2017-11-20] MEDS: HYDROmorphone 2 MG/ML VIAL IV ×8 (16:58→18:23)
[2017-11-20] MEDS: oxyCODONE/APAP 5/325 1 TAB TABLET PO ×2 (17:44→22:01)
[2017-11-20] MEDS: MIDAZOLAM HCL/PF 2 MG/2 ML VIAL. IV ×2 (18:04→18:42)
[2017-11-20] MEDS: TIMOLOL 0.5% OPHTH SOLUTION 5ML BOTTLE. OU (21:00)
[2017-11-20] MEDS: DORZOLAMIDE 2% OPHTH SOLUTION 10ML BOTTLE. OU (21:00)
[2017-11-20] MEDS: traZODone 100 MG TABLET. PO (21:27)
[2017-11-20] MEDS: DOCUSATE SODIUM 100 MG CAPSULE. PO (21:27)
[2017-11-20] MEDS: METHOCARBAMOL 750 MG TABLET PO (21:27)
[2017-11-20] MEDS: SIMVASTATIN 20 MG TABLET PO (21:27)
[2017-11-20] MEDS: ceFAZolin SODIUM IV Push 1 GM VIAL. IVP (21:52)
[2017-11-20] MEDS ORDERED: ceFAZolin SODIUM 1 GM in IV DEXTROSE 5% 50 ML IV (22:00)
[2017-11-21] MEDS: fentaNYL PF VIAL 100 MCG/2 ML VIAL IV ×11 (01:51→23:17)
[2017-11-21] MEDS: oxyCODONE/APAP 5/325 1 TAB TABLET PO ×3 (01:56→11:16)
[2017-11-21] MEDS: ceFAZolin SODIUM IV Push 1 GM VIAL. IVP ×2 (04:16→11:17)
[2017-11-21] MEDS: POTASSIUM CL 20MEQ D5-0.45NACL 1,000 ML IV ×2 (04:50→18:10)
[2017-11-21] MEDS: PANTOPRAZOLE 40 MG TABLET.DR. PO (06:12)
[2017-11-21] MEDS: DOCUSATE SODIUM 100 MG CAPSULE. PO ×2 (07:36→21:12)
[2017-11-21] MEDS: POLYETHYLENE GLYCOL 3350 17 GM PACKET. PO ×2 (07:41→19:13)
[2017-11-21] MEDS: METHOCARBAMOL 750 MG TABLET PO ×3 (07:41→21:12)
[2017-11-21] MEDS: MORPHINE SULFATE 2 MG/ML DISP.SYRIN. IV (07:44)
[2017-11-21] MEDS: DORZOLAMIDE 2% OPHTH SOLUTION 10ML BOTTLE. OU ×2 (09:00→21:00)
[2017-11-21] MEDS: TIMOLOL 0.5% OPHTH SOLUTION 5ML BOTTLE. OU ×2 (09:00→21:00)
[2017-11-21] MEDS ORDERED: NON FORMULARY ITEM (Cranberry Extract (Cranberry) 200 MG) PO (09:00)
[2017-11-21] MEDS: FLUoxetine HCL 20 MG CAPSULE PO (09:15)
[2017-11-21] MEDS: ASCORBIC ACID 500 MG TABLET PO (09:15)
[2017-11-21] MEDS: CALCIUM CARBONATE 500 MG TABLET PO (09:15)
[2017-11-21] MEDS ORDERED: oxyCODONE/APAP 10/325 1 TAB TABLET PO (12:00)
[2017-11-21] MEDS: oxyCODONE/APAP 10/325 1 TAB TABLET PO ×2 (15:19→21:19)
[2017-11-21] MEDS: SIMVASTATIN 20 MG TABLET PO (21:12)
[2017-11-21] MEDS: traZODone 100 MG TABLET. PO (21:12)
[2017-11-22] MEDS: fentaNYL PF VIAL 100 MCG/2 ML VIAL IV ×4 (02:14→09:32)
[2017-11-22] MEDS: oxyCODONE/APAP 10/325 1 TAB TABLET PO ×4 (03:27→21:38)
[2017-11-22] MEDS: PANTOPRAZOLE 40 MG TABLET.DR. PO (06:51)
[2017-11-22] MEDS: POTASSIUM CL 20MEQ D5-0.45NACL 1,000 ML IV ×2 (07:30→21:38)
[2017-11-22] MEDS: DOCUSATE SODIUM 100 MG CAPSULE. PO ×2 (08:17→21:37)
[2017-11-22] MEDS: FLUoxetine HCL 20 MG CAPSULE PO (08:17)
[2017-11-22] MEDS: ASCORBIC ACID 500 MG TABLET PO (08:17)
[2017-11-22] MEDS: CALCIUM CARBONATE 500 MG TABLET PO (08:17)
[2017-11-22] MEDS: METHOCARBAMOL 750 MG TABLET PO ×3 (08:17→21:37)
[2017-11-22] MEDS: DORZOLAMIDE 2% OPHTH SOLUTION 10ML BOTTLE. OU ×2 (09:00→21:36)
[2017-11-22] MEDS: TIMOLOL 0.5% OPHTH SOLUTION 5ML BOTTLE. OU ×2 (09:00→21:36)
[2017-11-22] MEDS: DEXAMETHASONE SOD PHOS 20 MG/5 ML VIAL. IV (10:26)
[2017-11-22] MEDS: DEXAMETHASONE SOD PHOS 4 MG/ML VIAL IV ×2 (12:36→17:57)
[2017-11-22] MEDS: POLYETHYLENE GLYCOL 3350 17 GM PACKET. PO (15:36)
[2017-11-22] MEDS: traZODone 100 MG TABLET. PO (21:37)
[2017-11-22] MEDS: SIMVASTATIN 20 MG TABLET PO (21:37)
[2017-11-23] MEDS: DEXAMETHASONE SOD PHOS 4 MG/ML VIAL IV ×3 (00:19→12:14)
[2017-11-23] MEDS: oxyCODONE/APAP 10/325 1 TAB TABLET PO ×2 (03:41→09:44)
[2017-11-23] MEDS: PANTOPRAZOLE 40 MG TABLET.DR. PO (06:20)
[2017-11-23] MEDS: TIMOLOL 0.5% OPHTH SOLUTION 5ML BOTTLE. OU (09:00)
[2017-11-23] MEDS: DORZOLAMIDE 2% OPHTH SOLUTION 10ML BOTTLE. OU (09:00)
[2017-11-23] MEDS: DOCUSATE SODIUM 100 MG CAPSULE. PO (09:03)
[2017-11-23] MEDS: ASCORBIC ACID 500 MG TABLET PO (09:03)
[2017-11-23] MEDS: METHOCARBAMOL 750 MG TABLET PO (09:03)
[2017-11-23] MEDS: FLUoxetine HCL 20 MG CAPSULE PO (09:03)
[2017-11-23] MEDS: CALCIUM CARBONATE 500 MG TABLET PO (09:03)
[2017-11-23] MEDS: POLYETHYLENE GLYCOL 3350 17 GM PACKET. PO (09:07)
[2017-11-23] MEDS: fentaNYL PF VIAL 100 MCG/2 ML VIAL IV (12:16)
== END 2017-11-23 12:25 | disposition home or self-care (01) | DRG 460 ==
LOC: OPSVCIP 08:12 → 4 SOUTHWST 19:03
PROC: 0SG00AJ Fusion of Lumbar Vertebral Joint with Interbody Fusion Device, Posterior Approach, Anterior Column, Open Approach (ICD-10-PCS; principal; 2017-11-20 11:23)
PROC: 01NB0ZZ Release Lumbar Nerve, Open Approach (ICD-10-PCS; 2017-11-20 11:23)
PROC: 4A11X4G Monitoring of Peripheral Nervous Electrical Activity, Intraoperative, External Approach (ICD-10-PCS; 2017-11-20 11:23)
DX: M48.062 Spinal stenosis, lumbar region with neurogenic claudication (principal); M43.16 Spondylolisthesis, lumbar region; M54.16 Radiculopathy, lumbar region
CPT/HCPCS: 36415; 72131; 76000; 86850; 86900; 86901; 88304; 88311; 97110-GP; 97116-GP; 97162-GP; 97530-GP; C1713; G8978-CL-GP; G8979-CK-GP; G8980-CI-GP; J0330; J0690; J1100; J1170; J1885; J2250; J2270; J2405; J2704; J3010; J3490; J7030; J7120

== ENCOUNTER 2017-11-30 07:06 | Inpatient (IN) | payer OTHER ==
[2017-11-30] MEDS: DEXAMETHASONE SOD PHOS 20 MG/5 ML VIAL. IM (07:40)
[2017-11-30] MEDS: KETOROLAC 60 MG/2 ML INJ. IM (07:40)
[2017-11-30] MEDS: MORPHINE SULFATE 10 MG/ML VIAL. IM (07:40)
[2017-11-30] MEDS ORDERED: ONDANSETRON PF 4 MG/2 ML VIAL. IV ×3 (09:00→14:00)
[2017-11-30 09:06] LABS: ADD MAN DIFF? NO
[2017-11-30 09:09] LABS: BASO # 0.1 x10^3/uL (0.0-0.2); BASO % 1 % (0-3); EOS # 0.1 x10^3/uL (0.0-0.7); EOS % 2 % (0-3); HEMOGLOBIN 13.4 g/dL (12.0-15.5); LYMPH # 1.3 x10^3/uL (1.0-4.8); LYMPH % 19 % (24-48); MEAN CORPUSCULAR HEMOGLOBIN 35 pg (25-35); MEAN CORPUSCULAR HGB CONC 34 g/dL (31-37); MEAN CORPUSCULAR VOLUME 102 fL (79-100); MONO # 0.7 x10^3/uL (0.0-1.1); MONO % 10 % (0-9); NEUT # 4.6 x10^3uL (1.8-7.7); NEUT % 67 % (31-73); PLATELET COUNT 430 x10^3/uL (140-400); RED BLOOD COUNT 3.84 x10^6/uL (3.50-5.40); RED CELL DISTRIBUTION WIDTH 13.5 % (11.5-14.5); WHITE BLOOD COUNT 6.9 x10^3/uL (4.0-11.0)
[2017-11-30] MEDS: MORPHINE SULFATE 4 MG/ML DISP.SYRIN. IV ×5 (09:09→23:59)
[2017-11-30 09:21] LABS: PROTHROMBIN TIME PATIENT 12.8 SEC (11.7-14.0)
[2017-11-30 09:22] LABS: PARTIAL THROMBOPLASTIN TIME 29 SEC (24-38)
[2017-11-30 09:24] LABS: ANION GAP 11 (6-14); BLOOD UREA NITROGEN 8 mg/dL (7-20); CALCIUM 8.9 mg/dL (8.5-10.1); CARBON DIOXIDE 25 mmol/L (21-32); CHLORIDE 99 mmol/L (98-107); CREATININE 0.6 mg/dL (0.6-1.0); GLUCOSE 122 mg/dL (70-99); POTASSIUM 4.2 mmol/L (3.5-5.1); SODIUM 135 mmol/L (136-145)
[2017-11-30] MEDS: CALCIUM CARBONATE 500 MG TABLET PO (11:00)
[2017-11-30] MEDS: DORZOLAMIDE 2% OPHTH SOLUTION 10ML BOTTLE. OU ×2 (11:00→21:00)
[2017-11-30] MEDS ORDERED: MAG HYDROX/ALUMINUM HYD/SIMETH 30 ML ORAL.SUSP PO (11:00)
[2017-11-30] MEDS ORDERED: diphenhydrAMINE HCL 25 MG CAPSULE PO (11:00)
[2017-11-30] MEDS ORDERED: diphenhydrAMINE 50 MG/ML VIAL IV (11:00)
[2017-11-30] MEDS ORDERED: NALOXONE 0.4 MG/ML VIAL. IV (11:00)
[2017-11-30] MEDS ORDERED: 0.9 % SODIUM CHLORIDE 10 ML DISP.SYRIN. IV (11:00)
[2017-11-30] MEDS ORDERED: MAGNESIUM HYDROXIDE 2,400 MG/30 ML ORAL.SUSP. PO (11:00)
[2017-11-30] MEDS: ASCORBIC ACID 500 MG TABLET PO (11:00)
[2017-11-30] MEDS: TIMOLOL 0.5% OPHTH SOLUTION 5ML BOTTLE. OU ×2 (11:00→21:00)
[2017-11-30] MEDS ORDERED: ACETAMINOPHEN 325 MG TABLET. PO (11:00)
[2017-11-30] MEDS ORDERED: CALCIUM CARBONATE 500 MG TAB.CHEW PO (11:00)
[2017-11-30] MEDS: FLUoxetine HCL 20 MG CAPSULE PO (11:00)
[2017-11-30] MEDS: DOCUSATE SODIUM 100 MG CAPSULE. PO ×4 (11:00→21:00)
[2017-11-30] MEDS: PANTOPRAZOLE 40 MG TABLET.DR. PO (11:30)
[2017-11-30] MEDS ORDERED: REMIFENTANIL 2 MG VIAL. IV (12:01)
[2017-11-30] MEDS ORDERED: LIDOCAINE 1% PF 5 ML VIAL. (12:01)
[2017-11-30] MEDS ORDERED: 0.9 % SODIUM CHLORIDE 50 ML VIAL. IJ (12:01)
[2017-11-30] MEDS ORDERED: fentaNYL PF VIAL 100 MCG/2 ML VIAL ×2 (12:01→14:00)
[2017-11-30] MEDS ORDERED: ROCURONIUM 50 MG/5 ML VIAL. (12:01)
[2017-11-30] MEDS ORDERED: PROPOFOL 20 ML IV (12:01)
[2017-11-30] MEDS ORDERED: PROPOFOL 50 ML IV (12:03)
[2017-11-30] MEDS: fentaNYL PF VIAL 100 MCG/2 ML VIAL IV ×5 (12:40→18:41)
[2017-11-30] MEDS: POTASSIUM CL 20MEQ D5-0.45NACL 1,000 ML IV (12:44)
[2017-11-30] MEDS: METHOCARBAMOL 750 MG TABLET PO ×2 (13:30→21:43)
[2017-11-30] MEDS: IV RINGERS,LACTATED 1000ML 1,000 ML IV (13:59)
[2017-11-30] MEDS ORDERED: fentaNYL PF VIAL 100 MCG/2 ML VIAL IV (14:00)
[2017-11-30] MEDS ORDERED: LIDOCAINE 1% PF 2 ML VIAL. ID (14:00)
[2017-11-30] MEDS ORDERED: MORPHINE SULFATE 2 MG/ML DISP.SYRIN. IV (14:00)
[2017-11-30] MEDS ORDERED: HYDROmorphone 2 MG/ML VIAL IV (14:00)
[2017-11-30] MEDS ORDERED: BUPIVACAINE MPF 0.5% 30 ML VIAL. (15:53)
[2017-11-30] MEDS ORDERED: DESFLURANE > 120 MINUTES IH (16:20)
[2017-11-30] MEDS ORDERED: DEXAMETHASONE SOD PHOS 20 MG/5 ML VIAL. (16:20)
[2017-11-30] MEDS ORDERED: ONDANSETRON PF 4 MG/2 ML VIAL. (16:43)
[2017-11-30] MEDS: GELATIN SPONGE SIZE 100. (16:51)
[2017-11-30] MEDS: KETOROLAC 60 MG/2 ML INJ FOR OR. (16:51)
[2017-11-30] MEDS: BUPIVAC MPF-EPI 0.5%-1:200000 30 ML VIAL. INJ (16:51)
[2017-11-30] MEDS: BACITRACIN 50,000 UNIT in IV NORMAL SALINE 1000ML BAG 1,000 ML IRR (16:51)
[2017-11-30] MEDS: THROMBIN TOPICAL 20,000 UNIT SPRAY.SYRN KIT TP (16:51)
[2017-11-30] MEDS: PROCHLORPERAZINE 10 MG/2 ML VIAL. IV ×2 (18:19→18:31)
[2017-11-30] MEDS: traZODone 100 MG TABLET. PO (21:43)
[2017-11-30] MEDS: SIMVASTATIN 20 MG TABLET PO (21:43)
[2017-11-30] MEDS: oxyCODONE/APAP 10/325 1 TAB TABLET PO (21:44)
[2017-12-01] MEDS: POTASSIUM CL 20MEQ D5-0.45NACL 1,000 ML IV (00:06)
[2017-12-01 06:11] LABS: ADD MAN DIFF? NO
[2017-12-01] MEDS: PANTOPRAZOLE 40 MG TABLET.DR. PO (06:12)
[2017-12-01] MEDS: oxyCODONE/APAP 10/325 1 TAB TABLET PO ×3 (06:13→18:36)
[2017-12-01 06:21] LABS: BASO % 0 % (0-3); EOS % 0 % (0-3); HEMATOCRIT 35.4 % (36.0-47.0); HEMOGLOBIN 11.6 g/dL (12.0-15.5); LYMPH # 0.7 x10^3/uL (1.0-4.8); LYMPH % 11 % (24-48); MEAN CORPUSCULAR HEMOGLOBIN 34 pg (25-35); MEAN CORPUSCULAR HGB CONC 33 g/dL (31-37); MEAN CORPUSCULAR VOLUME 103 fL (79-100); MONO # 0.4 x10^3/uL (0.0-1.1); MONO % 6 % (0-9); NEUT % 83 % (31-73); PLATELET COUNT 375 x10^3/uL (140-400); RED BLOOD COUNT 3.44 x10^6/uL (3.50-5.40); RED CELL DISTRIBUTION WIDTH 13.4 % (11.5-14.5)
[2017-12-01 06:45] LABS: ANION GAP 9 (6-14); BLOOD UREA NITROGEN 12 mg/dL (7-20); CARBON DIOXIDE 27 mmol/L (21-32); CHLORIDE 101 mmol/L (98-107); CREATININE 0.6 mg/dL (0.6-1.0); GLUCOSE 127 mg/dL (70-99); SODIUM 137 mmol/L (136-145)
[2017-12-01] MEDS: METHOCARBAMOL 750 MG TABLET PO ×3 (08:33→20:51)
[2017-12-01] MEDS: ASCORBIC ACID 500 MG TABLET PO (08:33)
[2017-12-01] MEDS: FLUoxetine HCL 20 MG CAPSULE PO (08:33)
[2017-12-01] MEDS: DOCUSATE SODIUM 100 MG CAPSULE. PO ×3 (08:34→20:50)
[2017-12-01] MEDS: CALCIUM CARBONATE 500 MG TABLET PO (08:34)
[2017-12-01] MEDS: MORPHINE SULFATE 4 MG/ML DISP.SYRIN. IV ×2 (08:36→11:00)
[2017-12-01] MEDS ORDERED: NON FORMULARY ITEM (Cranberry Extract (Cranberry) 200 MG) PO (09:00)
[2017-12-01] MEDS: TIMOLOL 0.5% OPHTH SOLUTION 5ML BOTTLE. OU ×2 (09:00→21:00)
[2017-12-01] MEDS: DORZOLAMIDE 2% OPHTH SOLUTION 10ML BOTTLE. OU ×2 (09:00→21:00)
[2017-12-01] MEDS: POLYETHYLENE GLYCOL 3350 17 GM PACKET. PO (11:55)
[2017-12-01] MEDS: fentaNYL PF VIAL 100 MCG/2 ML VIAL IV ×4 (14:23→20:52)
[2017-12-01] MEDS: traZODone 100 MG TABLET. PO (20:51)
[2017-12-01] MEDS: SIMVASTATIN 20 MG TABLET PO (21:08)
[2017-12-02] MEDS: oxyCODONE/APAP 10/325 1 TAB TABLET PO ×3 (02:44→15:48)
[2017-12-02] MEDS: METHOCARBAMOL 750 MG TABLET PO ×4 (05:18→17:25)
[2017-12-02] MEDS: fentaNYL PF VIAL 100 MCG/2 ML VIAL IV ×3 (05:43→17:36)
[2017-12-02] MEDS: TIMOLOL 0.5% OPHTH SOLUTION 5ML BOTTLE. OU (07:54)
[2017-12-02] MEDS: POLYETHYLENE GLYCOL 3350 17 GM PACKET. PO (07:55)
[2017-12-02] MEDS: DORZOLAMIDE 2% OPHTH SOLUTION 10ML BOTTLE. OU (07:55)
[2017-12-02] MEDS: DOCUSATE SODIUM 100 MG CAPSULE. PO (07:55)
[2017-12-02] MEDS: FLUoxetine HCL 20 MG CAPSULE PO (07:55)
[2017-12-02] MEDS: CALCIUM CARBONATE 500 MG TABLET PO (07:55)
[2017-12-02] MEDS: PANTOPRAZOLE 40 MG TABLET.DR. PO (07:55)
[2017-12-02] MEDS: ASCORBIC ACID 500 MG TABLET PO (08:02)
[2017-12-02] MEDS: DEXAMETHASONE SOD PHOS 20 MG/5 ML VIAL. IV ×2 (11:15→17:25)
== END 2017-12-02 17:00 | disposition home or self-care (01) | DRG 497 ==
LOC: 4 NORTH 09:36 → ER 07:06 → 4 NORTH 08:40
PROC: 0QW004Z Revision of Internal Fixation Device in Lumbar Vertebra, Open Approach (ICD-10-PCS; principal; 2017-11-30 14:00)
DX: M54.16 Radiculopathy, lumbar region (principal); Z96.641 Presence of right artificial hip joint; Z98.1 Arthrodesis status
CPT/HCPCS: 36415; 72100; 72131; 76000; 80048; 85025; 85610; 85730; 96361; 96365; 96372; 97116-GP; 97162-GP; 97530-GP; 99285; 99285-25; C1713; G8978-CK-GP; G8979-CJ-GP; G8980-CJ-GP; J0690; J0780; J1100; J1885; J2270; J2405; J2704; J3010; J3490; J7030; J7120

== ENCOUNTER 2018-02-07 13:29 | Inpatient (IN) | payer OTHER ==
[2018-02-07] MEDS ORDERED: MAGNESIUM HYDROXIDE 2,400 MG/30 ML ORAL.SUSP. PO (14:00)
[2018-02-07] MEDS ORDERED: CALCIUM CARBONATE 500 MG TAB.CHEW PO (14:00)
[2018-02-07] MEDS ORDERED: NALOXONE 0.4 MG/ML VIAL. IV (14:00)
[2018-02-07] MEDS ORDERED: diphenhydrAMINE HCL 25 MG CAPSULE PO (14:00)
[2018-02-07] MEDS ORDERED: ACETAMINOPHEN 325 MG TABLET. PO (14:00)
[2018-02-07] MEDS ORDERED: MAG HYDROX/ALUMINUM HYD/SIMETH 30 ML ORAL.SUSP PO (14:00)
[2018-02-07] MEDS ORDERED: ONDANSETRON PF 4 MG/2 ML VIAL. IV (14:00)
[2018-02-07] MEDS ORDERED: diphenhydrAMINE 50 MG/ML VIAL IV (14:00)
[2018-02-07] MEDS ORDERED: 0.9 % SODIUM CHLORIDE 10 ML DISP.SYRIN. IV (14:00)
[2018-02-07] MEDS: fentaNYL PF VIAL 100 MCG/2 ML VIAL IV ×5 (14:17→23:10)
[2018-02-07 15:00] LABS: HEMOGLOBIN 15.5 g/dL (12.0-15.5); MEAN CORPUSCULAR HEMOGLOBIN 33 pg (25-35); MEAN CORPUSCULAR HGB CONC 34 g/dL (31-37); MEAN CORPUSCULAR VOLUME 96 fL (79-100); PLATELET COUNT 271 x10^3/uL (140-400); RED BLOOD COUNT 4.78 x10^6/uL (3.50-5.40); RED CELL DISTRIBUTION WIDTH 13.7 % (11.5-14.5); WHITE BLOOD COUNT 10.3 x10^3/uL (4.0-11.0)
[2018-02-07] MEDS: FLUoxetine HCL 20 MG CAPSULE PO (15:00)
[2018-02-07] MEDS: ASCORBIC ACID 500 MG TABLET PO ×2 (15:00→16:00)
[2018-02-07 15:11] LABS: ANION GAP 10 (6-14); BLOOD UREA NITROGEN 11 mg/dL (7-20); CALCIUM 9.5 mg/dL (8.5-10.1); CARBON DIOXIDE 28 mmol/L (21-32); CHLORIDE 101 mmol/L (98-107); CREATININE 0.7 mg/dL (0.6-1.0); GFR 85.9; GLUCOSE 107 mg/dL (70-99); POTASSIUM 4.2 mmol/L (3.5-5.1); SODIUM 139 mmol/L (136-145)
[2018-02-07] MEDS: PANTOPRAZOLE 40 MG TABLET.DR. PO (16:00)
[2018-02-07] MEDS: CALCIUM CARBONATE 500 MG TABLET PO (16:00)
[2018-02-07] MEDS: oxyCODONE/APAP 10/325 1 TAB TABLET PO ×2 (16:00→23:11)
[2018-02-07] MEDS: SIMVASTATIN 20 MG TABLET PO (20:51)
[2018-02-07] MEDS: DOCUSATE SODIUM 100 MG CAPSULE. PO ×2 (20:51→20:56)
[2018-02-07] MEDS ORDERED: TIMOLOL 0.5% OPHTH SOLUTION 5ML BOTTLE. OU (21:00)
[2018-02-07] MEDS ORDERED: DORZOLAMIDE 2% OPHTH SOLUTION 10ML BOTTLE. OU (21:00)
[2018-02-07] MEDS: traZODone 100 MG TABLET. PO (23:10)
[2018-02-08] MEDS: fentaNYL PF VIAL 100 MCG/2 ML VIAL IV ×12 (01:21→22:11)
[2018-02-08] MEDS ORDERED: ONDANSETRON PF 4 MG/2 ML VIAL. IV (07:00)
[2018-02-08] MEDS ORDERED: fentaNYL PF VIAL 100 MCG/2 ML VIAL IV (07:00)
[2018-02-08] MEDS ORDERED: LIDOCAINE 1% PF 2 ML VIAL. ID (07:00)
[2018-02-08] MEDS: IV RINGERS,LACTATED 1000ML 1,000 ML IV (07:48)
[2018-02-08] MEDS ORDERED: fentaNYL PF VIAL 100 MCG/2 ML VIAL (07:53)
[2018-02-08] MEDS ORDERED: PROPOFOL 20 ML IV (08:27)
[2018-02-08] MEDS ORDERED: DEXAMETHASONE SOD PHOS 20 MG/5 ML VIAL. (08:27)
[2018-02-08] MEDS ORDERED: PHENYLEPHRINE 10 MG/ML VIAL. (08:27)
[2018-02-08] MEDS ORDERED: PROPOFOL 50 ML IV ×2 (08:27→10:20)
[2018-02-08] MEDS ORDERED: ONDANSETRON PF 4 MG/2 ML VIAL. (08:27)
[2018-02-08] MEDS ORDERED: LIDOCAINE 1% PF 5 ML VIAL. (08:27)
[2018-02-08] MEDS ORDERED: REMIFENTANIL 2 MG VIAL. IV (08:28)
[2018-02-08] MEDS ORDERED: ROCURONIUM 50 MG/5 ML VIAL. (08:28)
[2018-02-08] MEDS ORDERED: MIDAZOLAM HCL/PF 2 MG/2 ML VIAL. (08:28)
[2018-02-08] MEDS ORDERED: MINERAL OIL/PETROLATUM,WHITE OPHTH OINT 3.5GM TUBE. (08:28)
[2018-02-08] MEDS ORDERED: NON FORMULARY ITEM (Cranberry Extract (Cranberry) 200 MG) PO (09:00)
[2018-02-08] MEDS ORDERED: SEVOFLURANE > 120 MINUTES. IH (09:34)
[2018-02-08] MEDS: BACITRACIN 50,000 UNIT in IV NORMAL SALINE 1000ML BAG 1,000 ML IRR (09:35)
[2018-02-08] MEDS: BUPIVAC MPF-EPI 0.5%-1:200000 30 ML VIAL. INJ (09:35)
[2018-02-08] MEDS: GELATIN SPONGE SIZE 100. (09:35)
[2018-02-08] MEDS: THROMBIN TOPICAL 20,000 UNIT SPRAY.SYRN KIT TP (09:35)
[2018-02-08] MEDS: KETOROLAC 60 MG/2 ML INJ FOR OR. (09:35)
[2018-02-08] MEDS ORDERED: ALBUTEROL SULFATE 2.5 MG/3 ML NEBU. (10:04)
[2018-02-08] MEDS ORDERED: KETAMINE HCL 500 MG/10 ML VIAL. (12:05)
[2018-02-08] MEDS: MORPHINE SULFATE 4 MG/ML DISP.SYRIN. IV ×6 (12:36→13:40)
[2018-02-08] MEDS: HYDROmorphone 2 MG/ML VIAL IV ×4 (13:24→14:01)
[2018-02-08] MEDS: oxyCODONE/APAP 10/325 1 TAB TABLET PO ×2 (13:58→21:35)
[2018-02-08] MEDS: PROCHLORPERAZINE 10 MG/2 ML VIAL. IV (14:26)
[2018-02-08] MEDS: FLUoxetine HCL 20 MG CAPSULE PO (16:03)
[2018-02-08] MEDS: DOCUSATE SODIUM 100 MG CAPSULE. PO ×2 (16:04→21:34)
[2018-02-08] MEDS: CALCIUM CARBONATE 500 MG TABLET PO (16:07)
[2018-02-08] MEDS: ASCORBIC ACID 500 MG TABLET PO (16:07)
[2018-02-08] MEDS: METHOCARBAMOL 750 MG TABLET PO ×2 (16:07→21:34)
[2018-02-08] MEDS: PANTOPRAZOLE 40 MG TABLET.DR. PO (16:23)
[2018-02-08] MEDS: traZODone 100 MG TABLET. PO (21:34)
[2018-02-08] MEDS: SIMVASTATIN 20 MG TABLET PO (21:34)
[2018-02-09] MEDS: fentaNYL PF VIAL 100 MCG/2 ML VIAL IV ×11 (00:36→22:07)
[2018-02-09] MEDS: oxyCODONE/APAP 10/325 1 TAB TABLET PO ×4 (03:26→22:06)
[2018-02-09] MEDS: PANTOPRAZOLE 40 MG TABLET.DR. PO (06:08)
[2018-02-09] MEDS: CALCIUM CARBONATE 500 MG TABLET PO (09:16)
[2018-02-09] MEDS: POLYETHYLENE GLYCOL 3350 17 GM PACKET. PO (09:16)
[2018-02-09] MEDS: METHOCARBAMOL 750 MG TABLET PO ×2 (09:16→15:50)
[2018-02-09] MEDS: ASCORBIC ACID 500 MG TABLET PO (09:16)
[2018-02-09] MEDS: DOCUSATE SODIUM 100 MG CAPSULE. PO ×2 (09:16→20:42)
[2018-02-09] MEDS: FLUoxetine HCL 20 MG CAPSULE PO (09:16)
[2018-02-09] MEDS: SIMVASTATIN 20 MG TABLET PO (20:42)
[2018-02-09] MEDS: traZODone 100 MG TABLET. PO (22:05)
[2018-02-10] MEDS: fentaNYL PF VIAL 100 MCG/2 ML VIAL IV ×5 (00:12→11:19)
[2018-02-10] MEDS: METHOCARBAMOL 750 MG TABLET PO ×3 (04:14→22:49)
[2018-02-10] MEDS: oxyCODONE/APAP 10/325 1 TAB TABLET PO ×4 (04:14→22:50)
[2018-02-10] MEDS: PANTOPRAZOLE 40 MG TABLET.DR. PO (06:10)
[2018-02-10] MEDS: DOCUSATE SODIUM 100 MG CAPSULE. PO ×2 (08:45→20:53)
[2018-02-10] MEDS: FLUoxetine HCL 20 MG CAPSULE PO (08:45)
[2018-02-10] MEDS: POLYETHYLENE GLYCOL 3350 17 GM PACKET. PO (08:45)
[2018-02-10] MEDS: CALCIUM CARBONATE 500 MG TABLET PO (08:45)
[2018-02-10] MEDS: ASCORBIC ACID 500 MG TABLET PO (08:45)
[2018-02-10] MEDS: DEXAMETHASONE SOD PHOS 4 MG/ML VIAL IV ×2 (12:44→18:07)
[2018-02-10] MEDS: SIMVASTATIN 20 MG TABLET PO (20:53)
[2018-02-10] MEDS: traZODone 100 MG TABLET. PO (21:00)
[2018-02-11] MEDS: ZOLPIDEM 5 MG TABLET. PO (00:19)
[2018-02-11] MEDS: DEXAMETHASONE SOD PHOS 4 MG/ML VIAL IV ×2 (00:19→05:28)
[2018-02-11] MEDS: oxyCODONE/APAP 10/325 1 TAB TABLET PO ×2 (05:26→12:01)
[2018-02-11] MEDS: METHOCARBAMOL 750 MG TABLET PO ×2 (05:27→12:01)
[2018-02-11] MEDS: PANTOPRAZOLE 40 MG TABLET.DR. PO (05:27)
[2018-02-11] MEDS: POLYETHYLENE GLYCOL 3350 17 GM PACKET. PO (08:24)
[2018-02-11] MEDS: FLUoxetine HCL 20 MG CAPSULE PO (08:25)
[2018-02-11] MEDS: ASCORBIC ACID 500 MG TABLET PO (08:25)
[2018-02-11] MEDS: DOCUSATE SODIUM 100 MG CAPSULE. PO (08:25)
[2018-02-11] MEDS: CALCIUM CARBONATE 500 MG TABLET PO (08:25)
[2018-02-11] MEDS ORDERED: fentaNYL PF VIAL 100 MCG/2 ML VIAL IV (09:15)
[2018-02-11] MEDS: fentaNYL PF VIAL 100 MCG/2 ML VIAL IV (14:26)
== END 2018-02-11 15:45 | disposition home health service (06) | DRG 460 ==
LOC: 4 SOUTHEST 13:29 → 4 NORTH 02-09 15:24
PROC: 0SG10AJ Fusion of 2 or more Lumbar Vertebral Joints with Interbody Fusion Device, Posterior Approach, Anterior Column, Open Approach (ICD-10-PCS; principal; 2018-02-08 08:45)
PROC: 4A11X4G Monitoring of Peripheral Nervous Electrical Activity, Intraoperative, External Approach (ICD-10-PCS; 2018-02-08 08:45)
DX: M54.16 Radiculopathy, lumbar region (principal); F17.200 Nicotine dependence, unspecified, uncomplicated; Z86.19 Personal history of other infectious and parasitic diseases; Z96.641 Presence of right artificial hip joint
CPT/HCPCS: 36415; 72100; 72131; 76000; 80048; 85027; 88304; 88311; 97116-GP; 97162-GP; 99406; C1713; G8978-CJ-GP; G8979-CJ-GP; G8980-CJ-GP; J0690; J0780; J1100; J1170; J1885; J2250; J2270; J2405; J2704; J3010; J3490; J7030; J7120; J7613

== ENCOUNTER → 2018-04-04 | Outpatient (CLI) | payer OTHER ==
[~2018-04-04] MED LIST changes: +CONTRAST GIVEN. MC; -LIDOCAINE 1% PF 2 ML VIAL. ID; -MORPHINE SULFATE 2 MG/ML DISP.SYRIN. IV; -ONDANSETRON PF 4 MG/2 ML VIAL. IV; -PROCHLORPERAZINE 10 MG/2 ML VIAL. IV; -fentaNYL PF VIAL 100 MCG/2 ML VIAL IV
[2018-04-04] MEDS: LIDOCAINE WITH 8.4% SOD BICARB 3 ML DISP.SYRIN. INJ (09:58)
[2018-04-04] MEDS: IOHEXOL 180 MG/ML 10 ML VIAL. IT (09:59)
== END | disposition home or self-care (01) ==
LOC: RAD 08:54
DX: M51.16 Intervertebral disc disorders with radiculopathy, lumbar region (principal); M43.16 Spondylolisthesis, lumbar region; M48.061 Spinal stenosis, lumbar region without neurogenic claudication; Z98.1 Arthrodesis status
CPT/HCPCS: 72132; 72265; Q9965

== ENCOUNTER → 2018-05-02 | Outpatient (CLI) | payer OTHER | END | disposition home or self-care (01) | LOC: RAD 09:06 | DX: M43.26 Fusion of spine, lumbar region (principal); M48.061 Spinal stenosis, lumbar region without neurogenic claudication; Z98.890 Other specified postprocedural states | CPT/HCPCS: 72100 ==